=== PATIENT | female | born 1930 | race Caucasian/White ===

== ENCOUNTER → 2016-06-01 | Outpatient (CLI) | payer MEDICARE, BC ==
[~2016-06-01] MED LIST: ACCUPRIL40 MG PO; ALDARA12 EA; ANEXSIA 7.5/3251 TA1 PO; ATENOLOL PO; ATENOLOL-CHLOR1 EACH PO; DIOVAN160 MG PO; HCTZ PO; LISINOPRIL PO; MACROBID 100 M100 MG PO; NORVASC PO; PREMARIN PO; TENORETIC 100 T1 TAB PO
--- NOTE | ~2016-06-01 | EKG ---
PATIENT: SERENA COE UNIT #: [id number] Ventricular Rate: 66 BPM Atrial Rate: 66 BPM P-R Interval: 182 ms QRS Duration: 70 ms Q-T Interval: 426 ms QTC Calculation(Bezet): 446 ms P [place]: 77 degrees Calculated R [place]: 46 degrees Calculated T [place]: 57 degrees Diagnosis Line: Sinus rhythm with Premature atrial complexes Diagnosis Line: Otherwise normal ECG Diagnosis Line: When compared with ECG of 08-JUN-2015 04:50, Diagnosis Line: Premature atrial complexes are now Present Diagnosis Line: QT has shortened Diagnosis Line: Confirmed by NANO GIBBS MD ([id number]) on 06/02/2016 Diagnosis Line: 5:36:58 PM INTERPRETING MD: SAI CHING
[2016-06-01 09:40] LABS: MEAN CORPUSCULAR HEMOGLOBIN 29.9 PG (28-34)
[2016-06-01 09:43] LABS: HEMATOCRIT 38.8 % (35.0-45.0); MEAN CELL VOLUME 89.2 FL (83-96); MEAN CORPUSCULAR HGB CONC 33.5 g/dL (30-36); RED BLOOD COUNT 4.35 X10e (3.90-5.30); RED CELL DISTRIBUTION WIDTH 13.5 % (11.0-15.5); WHITE BLOOD COUNT 6.5 X10e3 (4.0-10.5)
[2016-06-01 10:17] LABS: BUN/CREATININE RATIO 17.27; CREATININE SERUM 1.1 mg/dL (0.6-1.4); GLOM FILT RATE Estimated 50.2 mL/min (>60); POTASSIUM 4.2 mmol/L (3.5-5.1)
== END | disposition home or self-care (01) ==
LOC: SEKG 09:24
PROVIDERS: Anesthesiology
DX: Z01.818 Encounter for other preprocedural examination (principal)
CPT/HCPCS: 36415; 80048; 85027; 93005